=== PATIENT | male | born 1980 | race Caucasian/White ===

== ENCOUNTER 2024-07-06 12:31 | Day surgery (SDC) | payer BC ==
[~2024-07-06] VITALS: Ht 182.9 cm; Wt 94.9 kg
[~2024-07-06 12:31] MED LIST: Famotidine 20 MG TAB PO SCH; HYDROmorphone 1 MG/1 ML SYRINGE [PACU/SDC ONLY] IV PRN; LR 1,000 ML IV SCH; Meclizine 25 MG TAB PO SCH; Ondansetron 4 MG/2 ML VIAL IV PRN; droPERidol 2.5 MG/ML 2 ML VIAL IV PRN; fentaNYL 50 MCG/ML 1 ML SYRINGE/VIAL [PACU/SDC ONLY] IV PRN; hydrALAZINE 20 MG/ML 1 ML VIAL IV PRN
[2024-07-06] MEDS ORDERED: dexAMETHasone 10 MG/ML VIAL ONE (13:11)
[2024-07-06] MEDS ORDERED: NS 10 ML IV ONE (13:11)
[2024-07-06] MEDS ORDERED: Ondansetron 4 MG/2 ML VIAL ONE (13:11)
[2024-07-06] MEDS ORDERED: Ketorolac 30 MG/ML VIAL ONE (13:11)
[2024-07-06] MEDS ORDERED: fentaNYL 50 MCG/ML 2 ML VIAL ONE (13:12)
[2024-07-06] MEDS ORDERED: Rocuronium 50 MG/5 ML Multi-Dose VIAL ONE (13:13)
[2024-07-06 13:35] VITALS: BP 132/93; PULSE 71; TEMP 98.1
[2024-07-06] MEDS ORDERED: MOTRIN 600600 MG/TAB PO (14:40)
[2024-07-06] MEDS ORDERED: NORCO 325 MG-51 TAB PO (14:41)
[2024-07-06] MEDS ORDERED: Topical Skin Adhesive 1 EACH (1 ML) TOP ONE (15:34)
[2024-07-06] MEDS ORDERED: Morphine 4 MG/ML VIAL IV PRN (16:15)
[2024-07-06] MEDS ORDERED: Ondansetron 4 MG/2 ML VIAL IV PRN (16:15)
[2024-07-06] MEDS ORDERED: Ibuprofen 600 MG TAB PO PRN (16:15)
[2024-07-06 16:35] VITALS: BP 124/79; PULSE 73; TEMP 98
--- NOTE | 2024-07-06 16:35 | NUR ---
PATIENT RETURNED TO BAY [facility] VIA CART, ALERT AND ORIENTED X3. DENIES PAIN, NAUSEA AND SHORTNESS OF BREATH. BREATHING REGULAR AND UNLABORED ON ROOM AIR. SKIN WARM AND DRY. NURSE HANDOFF COMPLETED IN ROOM WITH INSPECTION OF SURGICAL SITES. 3 ABDOMINAL SITES WITH SKIN GLUE CLOSURE CLEAN, DRY AND INTACT. SEE CHART FOR VITAL SIGNS. PATIENT IS PLEASANT AND HAS NO COMPLAINTS. PATIENT HAD PUDDING AND APPLE JUICE, BOTH TOLERATED WELL. NO DYSPHAGIA. CALL LIGHT IN REACH. SPOUSE, RONNI, PRESENT IN ROOM.
[2024-07-06 16:45] VITALS: BP 110/72; PULSE 60
[2024-07-06 17:00] VITALS: BP 126/78; PULSE 62
--- NOTE | 2024-07-06 17:10 | NUR ---
SPOKE WITH RONNI OVER THE PHONE TO DISCUSS THE PROCEDURE. 1700: DISCHARGE TEACHING COMPLETED WITH PRINTED EDUCATION AND INSTRUCTIONS SENT HOME WITH PATIENT. PATIENT AND SPOUSE VERBALIZED UNDERSTANDING. 1703: PATIENT DECLINES NEEDING TO VOID. DENIES PAIN AND NAUSEA. ALL 3 ABDOMINAL INCISIONS CLEAN AND DRY WITH SKIN GLUE INTACT. IV REMOVED. GAUZE AND COBAN PLACED OVER SITE. 1710: PATIENT CHANGED INTO PERSONAL CLOTHING. WALKS WITH STEADY GAIT. DISCHARGED HOME WITH SPOUSE, RONNI, TRANSPORT.
== END 2024-07-06 17:10 | disposition home or self-care (01) ==
LOC: SDCO 12:31
DX: K40.90 Unilateral inguinal hernia, without obstruction or gangrene, not specified as recurrent (principal)
CPT/HCPCS: C1781; J0690; J1100; J1885; J2405; J2704; J3010; J7120